=== PATIENT | male | born 1995 | race Hispanic/Latino ===

== ENCOUNTER 2019-12-24 16:14 | Emergency (ER) | payer OTHER, SELFPAY ==
[2019-12-24 16:24] VITALS: BP 150/87; PULSE 106; RESP 18; TEMP 37; O2SAT 98
--- NOTE | 2019-12-24 16:58 | ED.SKABFB ---
HPI - Skin/Abscess/Foreign Bdy General Chief complaint: Skin/Abscess/Foreign Body Stated complaint: Waistband pain Time Seen by Provider: 12/24/19 16:41 Source: patient and RN notes reviewed Mode of arrival: ambulatory Limitations: no limitations History of Present Illness HPI narrative: Patient presents today complaining of an abscess to his right lower abdomen x2 weeks that has been worsening over the last several days. Denies drainage. Reports it started out as a very small bump. Denies any shaving to this area. Denies any history of abscesses, staph infections, boils, MRSA. Currently rates his pain 2/10, which increases with touching or movement. He has tried Tylenol without relief. MD complaint: abscess/boil Related Data Allergies Allergy/AdvReac Type Severity Reaction Status Date / Time No Known Allergies Allergy Unknown Unverified 12/17/18 04:42 Review of Systems Review of Systems: Narrative: CONSTITUTIONAL: Denies body aches, fever, chills, or sweats. EYES: Denies visual changes, redness, or discharge. ENT: Denies rhinorrhea, congestion, sore throat, or otalgia. CARDIOVASCULAR: Denies chest pain, palpitations, or edema. RESPIRATORY: Denies cough or dyspnea. GASTROINTESTINAL: Denies abdominal pain, nausea, vomiting, or diarrhea. GENITOURINARY: Denies dysuria or hematuria. SKIN: Denies rash, itching, or wounds.+ Abscess to right lower abdomen MUSCULOSKELETAL: Denies back pain, joint pain, or myalgia. NEUROLOGIC: Denies headache, numbness, tingling, or weakness. PSYCH: Denies depression or anxiety. PMFSH Social History Social History Gender identity (if verbalized by the patient): Male Comments At time of signature, I have reviewed and agree with nursing past medical, surgical, social and family history unless otherwise noted. Please see nursing chart for further information. There is no relevant family history pertinent to the presenting complaint Exam Narrative: Exam Narrative: GENERAL: Well-appearing, well-nourished, and in no acute distress. HEAD: Normocephalic, atraumatic. EYES: EOMI. No redness or drainage. Conjunctivae normal. ENT: Mucous membranes pink and moist. NECK: Normal AROM. CHEST: No respiratory distress. EXTREMITIES: Normal range of motion. No edema. SKIN: Warm, dry, no rash. Capillary refill normal. Normal skin turgor. + 5 x 2 cm area of fluctuance to the right lower abdomen/abdominal fold. Tender to palpation. Very slight surrounding area of induration. NEURO: No focal deficits. Alert and oriented x3. Gait steady. PSYCH: Normal affect. No signs of depression or anxiety. Course Vital Signs Vital signs: Vital Signs Temperature 98.6 F 12/24/19 16:24 Pulse Rate 106 H 12/24/19 16:24 Respiratory Rate 18 12/24/19 16:24 Blood Pressure 150/87 H 12/24/19 16:24 Pulse Oximetry 98 12/24/19 16:24 Temperature 98.6 F 12/24/19 16:24 Pulse Rate 106 H 12/24/19 16:24 Respiratory Rate 18 12/24/19 16:24 Blood Pressure 150/87 H 12/24/19 16:24 Pulse Oximetry 98 12/24/19 16:24 Reviewed. Pt has been instructed to follow up with his PCP regarding his elevated blood pressure today. Procedures Abscess I/D abdomen: Date of Incision: 12/24/19 Time of Incision: 16:59 Side (if applicable): right Sedation/analgesia: none Local Anesthetic: lidocaine 1% Amount of anesthesia used (mL): 3 Technique: incised with #11 blade Irrigation: No Packing used?: iodoform I&D Results: Pus and Blood Abcess I&D Additional Comments: Dressed with large bandaid. Culture obtained. MDM - Skin/Abscess/Foreign Bdy Differential Diagnosis Differential diagnosis: Likely abscess of skin or subcutaneous tissue, cellulitis and impetigo Critical Care Time Critical Care Time Critical Care Time: No Discharge Plan Discharge Clinical Impression: Abscess, Cellulitis of right abdominal wall Patient Disposition: Home, T[place]
== END 2019-12-24 17:05 | disposition home or self-care (01) ==
PROVIDERS: Emergency Provider Nurse Practitioner
DX: L02.211 Cutaneous abscess of abdominal wall (principal); L03.311 Cellulitis of abdominal wall
CPT/HCPCS: 10061; 87070; 87077; 87186; 87205; 99213; G0463

== ENCOUNTER 2020-05-17 12:41 | Emergency (ER) | payer SELFPAY ==
--- NOTE | 2020-05-17 12:44 | ED.GENADULT ---
HPI - General Adult General Chief complaint: Skin/Abscess/Foreign Body Stated complaint: Abscess on back Time Seen by Provider: 05/17/20 12:44 Source: patient Mode of arrival: ambulatory Limitations: no limitations History of Present Illness HPI narrative: 24-year-old male patient presents to the [facility] with complaints of a wound to the buttocks for the past 2 weeks. Patient states is gotten increasingly worse the past couple of days and states it is painful to sit. Denies any fevers, body aches or chills. Patient states he has had an abscess to this area before and has not had it drained. Related Data Allergies Allergy/AdvReac Type Severity Reaction Status Date / Time No Known Allergies Allergy Unknown Unverified 12/17/18 04:42 Review of Systems Review of Systems: Narrative: CONSTITUTIONAL: Denies fever, chills, or sweats. EYES: Denies visual changes, redness, or discharge. ENT: Denies rhinorrhea, congestion, sore throat, or otalgia. CARDIOVASCULAR: Denies chest pain, palpitations, or edema. RESPIRATORY: Denies cough or dyspnea. GASTROINTESTINAL: Denies abdominal pain, nausea, vomiting, or diarrhea. GENITOURINARY: Denies dysuria or hematuria. SKIN: Denies rash or itching. Positive abscess to buttocks x2 weeks MUSCULOSKELETAL: Denies back pain, joint pain, or myalgia. NEUROLOGIC: Denies headache, numbness, or weakness. PSYCHIATRIC: Denies anxiety or depression. [facility] Past Medical History Medical History (Updated 05/17/20 @ 13:40 by MADISON Lugo) Fracture Compression fracture to spine Surgical History Surgical History (Updated 05/17/20 @ 12:46 by MADISON Lugo) History of appendectomy Social History Social History Gender identity (if verbalized by the patient): Male Comments At the time of my signature I agree with nursing past medical history, surgical, social, and family history. There is no relevant family history pertinent to the presenting complaint. Exam Narrative: Exam Narrative: GENERAL: Well-appearing, well-nourished, and in no acute distress. HEAD: Normocephalic, atraumatic. EYES: PERRLA and EOMI. ENT: Nares clear, no rhinorrhea or epistaxis. Mucous membranes moist. NECK: Supple. No lymphadenopathy CHEST: Clear to auscultation. No respiratory distress. HEART: Regular rate and rhythm. No murmur heard. Normal peripheral pulses. ABDOMEN: Soft, nontender, nondistended, normal active bowel sounds. EXTREMITIES: Normal range of motion. No edema. SKIN: Warm, dry, no rash. Patient has approximately 4.5 x 2 cm abscess noted to the left coccyx. There is no open wounds or drainage at this time. It is very firm to the touch but no warmth present. NEURO: No focal deficits. Alert and oriented x3. Course Vital Signs Vital signs: Vital Signs Temperature 37.1 C 05/17/20 12:58 Pulse Rate 108 H 05/17/20 12:58 Respiratory Rate 18 05/17/20 12:58 Blood Pressure 153/97 H 05/17/20 12:58 Pulse Oximetry 100 05/17/20 12:58 Temperature 37.1 C 05/17/20 12:58 Pulse Rate 108 H 05/17/20 12:58 Respiratory Rate 18 05/17/20 12:58 Blood Pressure 153/97 H 05/17/20 12:58 Pulse Oximetry 100 05/17/20 12:58 Vital signs reviewed The patient has been informed that they may have pre-hypertension or Hypertension based on a BP reading in the department. I recommend that the patient call the primary care provider listed on their discharge instructions or a physician of their choice this week to arrange follow up for further evaluation of possible pre-hypertension or Hypertension Procedures Abscess I/D florencio-rectal: Date of Incision: 05/17/20 Time of Incision: 13:35 Side (if applicable): left Sedation/analgesia: none Local Anesthetic: lidocaine 1% Amount of anesthesia used (mL): 4 Technique: incised with #11 blade Irrigation: Yes Packing used?: none I&D Results: B
[2020-05-17 12:58] VITALS: BP 153/97; PULSE 108; RESP 18; TEMP 37.1; O2SAT 100
--- NOTE | 2020-05-17 13:24 | PC.NURSE ---
1320, executive vp at bedside to exam.
--- NOTE | 2020-05-17 13:53 | PC.NURSE ---
abscess was to right upper inner buttock area.
== END 2020-05-17 14:02 | disposition home or self-care (01) ==
PROVIDERS: Emergency Provider Nurse Practitioner Family
DX: L02.31 Cutaneous abscess of buttock (principal)
CPT/HCPCS: 10060; 99213; G0463

== ENCOUNTER 2022-05-09 16:19 | Emergency (ER) | payer OTHER, SELFPAY ==
[2022-05-09 16:28] VITALS: BP 144/89; PULSE 104; RESP 16; TEMP 37.4; O2SAT 98
--- NOTE | 2022-05-09 16:31 | ED.URI ---
HPI - URI/Sore Throat General Chief Complaint: Upper Respiratory Infection Stated Complaint: uri Source: patient and RN notes reviewed Mode of arrival: ambulatory Limitations: no limitations History of Present Illness HPI Narrative: 26 y/o male presented for c/o nasal drainage and sinus pressure, sore throat, fatigue, and ear pressure for about 2 days. Endorses bilateral ear ringing and the left ear feels clogged with sharp shooting pains today. Took Nyquil for symptoms. Denies sob, wheezing, n/v/d/f/c. Reports sick contacts at work MD elicited complaint: cough Related Data Home Medications Medication Instructions Recorded Confirmed alcohol swabs (BD Alcohol Swabs) 1 pad topical DIRECTED 05/09/22 05/09/22 atorvastatin 20 mg tablet 20 mg PO DAILY 05/09/22 05/09/22 ergocalciferol (vitamin D2) 1,250 1,250 mcg PO DIRECTED 05/09/22 05/09/22 mcg (50,000 unit) capsule insulin glargine 100 unit/mL (3 1 unit subcut DIRECTED 05/09/22 05/09/22 mL) subcutaneous pen (Lantus Solostar U-100 Insulin) levothyroxine 50 mcg tablet 50 mcg PO DAILY 05/09/22 05/09/22 metformin 500 mg tablet,extended 500 mg PO DIRECTED 05/09/22 05/09/22 release 24 hr pen needle, diabetic 32 gauge x 05/09/22 05/09/22 5/32 (BD Yue 2nd Gen Pen Needle) semaglutide 0.25 mg or 0.5 mg (2 0.25 mg subcut DIRECTED 05/09/22 05/09/22 mg/1.5 mL) subcutaneous pen injector (Ozempic) Allergies Allergy/AdvReac Type Severity Reaction Status Date / Time No Known Allergies Allergy Unknown Unverified 12/17/18 04:42 Review of Systems Review of Systems: CONSTITUTIONAL: Denies malaise, chills, sweats, fever EYES: Denies visual changes, redness, or discharge ENT: Reports rhinorrhea, congestion, sinus pain, otalgia, sore throat CARDIOVASCULAR: Denies chest pain, palpitations, edema RESPIRATORY: Reports cough, post nasal drainage. Denies dyspnea GASTROINTESTINAL: Denies abdominal pain, nausea, vomiting, diarrhea SKIN: Denies rash or itching MUSCULOSKELETAL: Denies myalgia [facility] Past Medical History Medical History (Updated 05/09/22 @ 16:46 by Laquita Giraldo APRN) Diabetes Fracture Compression fracture to spine Surgical History Surgical History History of appendectomy Social History Social History Gender identity (if verbalized by the patient): Male Exam Narrative: GENERAL: mildly Ill-appearing, nontoxic EYES: PERRLA, conjunctivae clear ENT: Mucous membranes moist. Right TM pearly avila with dull light reflex; Left TM erythematous and bulging; no tragal tenderness. Oropharynx erythematous without lesions or exudate NECK: Supple. No lymphadenopathy CHEST: Clear to auscultation, breath sounds equal. No wheezing, rhonchi, rales, or stridor. HEART: Regular rate and rhythm. No murmur heard. SKIN: Warm, dry, no rash. NEURO: Alert and oriented x3. PSYCH: Normal mood and affect Course Course Emergency Course: Patient is aware of diagnosis, understands and agrees to treatment plan. Anticipatory guidance given. Patient agrees to follow-up as directed and is aware of reasons to seek care at the emergency department. Portions of this record may have been created with voice recognition software Level of Care: Express Care Visit Vital Signs Vital signs: Vital Signs Temperature 99.4 F 05/09/22 16:28 Pulse Rate 104 H 05/09/22 16:28 Respiratory Rate 16 05/09/22 16:28 Blood Pressure 144/89 H 05/09/22 16:28 Pulse Oximetry 98 05/09/22 16:28 Oxygen Delivery Room Air 05/09/22 16:28 Temperature 99.4 F 05/09/22 16:28 Pulse Rate 104 H 05/09/22 16:28 Respiratory Rate 16 05/09/22 16:28 Blood Pressure 144/89 H 05/09/22 16:28 Pulse Oximetry 98 05/09/22 16:28 Oxygen Delivery Room Air 05/09/22 16:28 reviewed MDM - URI/Sore Throat MDM Narrative Medical decision making narrati
== END 2022-05-09 16:53 | disposition home or self-care (01) ==
PROVIDERS: Emergency Provider Nurse Practitioner Family; PCP Family Medicine
DX: H66.90 Otitis media, unspecified, unspecified ear (principal); E11.9 Type 2 diabetes mellitus without complications; Z79.4 Long term (current) use of insulin
CPT/HCPCS: 87081; 87880; 99213; G0463

== ENCOUNTER 2023-08-15 02:18 | Emergency (ER) | payer OTHER, SELFPAY ==
[2023-08-15 02:23] VITALS: BP 166/92; PULSE 120; RESP 16; TEMP 37.1; O2SAT 100
--- NOTE | 2023-08-15 02:55 | ED.GENADULT ---
HPI - General Adult General Chief complaint: Wound/Laceration Stated complaint: right thigh painful wound Time Seen by Provider: 08/15/23 02:29 History of Present Illness HPI narrative: Patient is a 27-year-old male who presents to the emergency department this evening complaining of right thigh abscess. Patient states that he noticed the bump approximately 1 week ago and felt as though it is an ingrown hair follicle which he usually gets frequently. Patient states that throughout the week it has grown in size and become more more tender and red. Patient states that he tried to drain it himself with no success. His cry denies any additional symptoms including any fevers or chills. Related Data Home Medications Medication Instructions Recorded Confirmed alcohol swabs (BD Alcohol Swabs) 1 pad topical DIRECTED 05/09/22 05/09/22 atorvastatin 20 mg tablet 20 mg PO DAILY 05/09/22 05/09/22 ergocalciferol (vitamin D2) 1,250 1,250 mcg PO DIRECTED 05/09/22 05/09/22 mcg (50,000 unit) capsule insulin glargine 100 unit/mL (3 1 unit subcut DIRECTED 05/09/22 05/09/22 mL) subcutaneous pen (Lantus Solostar U-100 Insulin) levothyroxine 50 mcg tablet 50 mcg PO DAILY 05/09/22 05/09/22 metformin 500 mg tablet,extended 500 mg PO DIRECTED 05/09/22 05/09/22 release 24 hr pen needle, diabetic 32 gauge x 05/09/22 05/09/22 5/32 (BD Yue 2nd Gen Pen Needle) semaglutide 0.25 mg or 0.5 mg (2 0.25 mg subcut DIRECTED 05/09/22 05/09/22 mg/1.5 mL) subcutaneous pen injector (Ozempic) Allergies Allergy/AdvReac Type Severity Reaction Status Date / Time No Known Allergies Allergy Unknown Unverified 08/15/23 02:19 Review of Systems Review of Systems: All systems are reviewed and are negative unless stated otherwise in the HPI. [facility] Past Medical History Medical History Diabetes Fracture Compression fracture to spine Surgical History Surgical History History of appendectomy Social History Social History Gender identity (if verbalized by the patient): Male Exam Narrative: General: Alert, awake, afebrile, in no acute distress. HEENT: PERRL, no rhinorrhea, no post nasal drip, oropharynx clear. Cardiovascular: Regular rate and rhythm, no murmurs, rubs or gallops, no peripheral edema. Respiratory: Clear to auscultation bilaterally, no tachypnea, no wheezing, no rhonchi, no rubs, no respiratory distress. Abdomen: Soft, nontender, nondistended, no rebound, no guarding, no peritoneal signs. Musculoskeletal: No joint swelling or deformity, normal muscle tone. Skin: Abscess overlying the right upper lateral thigh measuring approximately 6 x 6 cm with surrounding erythema and induration. Neurological: Alert and oriented to person, place, and time. Follows all commands. No focal deficits, speech is clear and fluent. Course Vital Signs Vital signs: Vital Signs Temperature 98.7 F 08/15/23 02:23 Pulse Rate 120 H 08/15/23 02:23 Respiratory Rate 16 08/15/23 02:23 Blood Pressure 166/92 H 08/15/23 02:23 Pulse Oximetry 100 08/15/23 02:23 Oxygen Delivery Room Air 08/15/23 02:23 Temperature 98.7 F 08/15/23 02:23 Pulse Rate 120 H 08/15/23 02:23 Respiratory Rate 16 08/15/23 02:23 Blood Pressure 166/92 H 08/15/23 02:23 Pulse Oximetry 100 08/15/23 02:23 Oxygen Delivery Room Air 08/15/23 02:23 Procedures Abscess I/D lower extremity: Date of Incision: 08/15/23 Time of Incision: 03:15 Side (if applicable): right Sedation/analgesia: other Local Anesthetic: lidocaine 1% Amount of anesthesia used (mL): 3 Technique: incised with #11 blade Amount of fluid expressed (mL): 20 Irrigation: No Packing used?: none I&D Results: Pus and Blood Med
== END 2023-08-15 03:20 | disposition home or self-care (01) ==
PROVIDERS: Emergency Provider Emergency Medicine; PCP Family Medicine
DX: L02.415 Cutaneous abscess of right lower limb (principal); E11.9 Type 2 diabetes mellitus without complications; Z79.4 Long term (current) use of insulin
CPT/HCPCS: 10060; 99283

== ENCOUNTER 2024-03-31 16:07 | Outpatient (CLI) | payer OTHER, SELFPAY ==
--- OUTSIDE RECORDS SUMMARY | 2024-03-31 16:14 | XMS_ITS | Referral Summary ---
Author Organization [facility] Address [address] [place] [address] Care Team Providers Care Medical Tech Name Role Phone Vee Lund Primary Care Provider + Source Comments [facility],non-owned Affiliates and Associated Physician Practices is amultiple site organization consisting of ambulatory clinics and hospital sitesin [place], [place], [place] and [place]. This disclosure is being madepursuant to the Care Everywhere program and may not contain all information available regarding this patient. Last updated 17.[facility] Social History Tobacco Use Types Packs/Day Years Used Date Smoking Tobacco: Never Assessed Sex and Gender Information Value Date Recorded Sex Assigned at Not on file Gender Identity Not on file Sexual Orientation Not on file Plan of Treatment Not on file Care Teams Medical Tech Relationship Specialty Start Date End Date Vee Lund APRN-CNP [address] [place] [address] [place] [phone] PCP - General 04/25/09
--- OUTSIDE RECORDS SUMMARY | 2024-03-31 16:15 | XMS_ITS | Clinical Summary ---
Author Organization [facility] Address [address] [place] [phone] Phone Care Team Providers Care Customs Compliance Director Name Role Phone Unavailable Primary Care Provider Unavailabl e Social History Tobacco Use Types Packs/Day Years Used Date Smoking Tobacco: Never Assessed Sex and Gender Information Value Date Recorded Sex Assigned at Not on file Legal Sex Male 1:18 PM CDT Gender Identity Not on file Sexual Orientation Not on file Plan of Treatment Health Maintenance Due Date Last Done Comments DTAP/TDAP/TD VACCINES (1 - Tdap) 2012 HEPATITIS B VACCINES (1 of 3 - 19+ 3-dose series) 2012 INFLUENZA VACCINE (#1) 2023 HPV VACCINES Aged Out No longer eligi ble based on patient's age to complete this topic PNEUMOCOCCAL VACCINE 0-64 YEARS Aged Out No longer eligible based on patient's age to complete this topic
--- OUTSIDE RECORDS SUMMARY | 2024-03-31 16:15 | XMS_ITS | Clinical Summary ---
Author Organization [facility] Address [address] [place] [address] Care Team Providers Care Chief Crew Scheduler Name Role Phone Vee Lund Primary Care Provider + Source Comments [facility],non-owned Affiliates and Associated Physician Practices is amultiple site organization consisting of ambulatory clinics and hospital sitesin [place], [place]. This disclosure is being madepursuant to the Care Everywhere program and may not contain all information available regarding this patient. Last updated 17.[facility] Social History Tobacco Use Types Packs/Day Years Used Date Smoking Tobacco: Never Assessed Sex and Gender Information Value Date Recorded Sex Assigned at Not on file Gender Identity Not on file Sexual Orientation Not on file Plan of Treatment Health Maintenance Due Date Last Done Comments HIV SCREENING 2008 HEPATITIS C SCREENING 11/26/2011 DTAP/TDAP/TD VACCINES (1 - Tdap) 2012 HEPATITIS B VACCINE (1 of 3 - 19+ 3-dose series) 2012 COVID-19 VACCINE ( - 2023-2 5 season) 2023 INFLUENZA VACCINE (#1) 2023 DEPRESSION SCREENING 03/04/2024 ZOSTER VACCINE (1 of 2) 12/01/2043 HIB VACCINE Aged Out No longer eligi ble based on patient's age to complete this topic HPV VACCINE Aged Out No longer eligi ble based on patient's age to complete this topic MENINGOCOCCAL (Group B) VACCINE Aged Out No longer eligible based on patient's age to complete this topic MENINGOCOCCAL VACCINE Aged Out No darleen heather eligible based on patient's age to complete this topic PNEUMOCOCCAL VACCINE Aged Out No long er eligible based on patient's age to complete this topic Care Teams Chief Crew Scheduler Relationship Specialty Start Date End Date Vee Lund APRN-ELEONORA [address] [place] [phone] PCP - General 04/25/09
--- OUTSIDE RECORDS SUMMARY | 2024-03-31 16:15 | XMS_ITS | Patient Health Summary ---
Author Organization [facility] Address [address] [place] [address] Care Team Providers Care Ice Seller Name Role Phone Vee Lund Primary Care Provider + Note from [facility],non-owned Affiliates and Associated Physician Practices is amultiple site organization consisting of ambulatory clinics and hospital sitesin [place], [place], [place] and [place]. This disclosure is being madepursuant to the Care Everywhere program and may not contain all information available regarding this patient. Last updated 17.[facility] Social History Tobacco Use Types Packs/Day Years Used Date Smoking Tobacco: Never Assessed Sex and Gender Information Value Date Recorded Sex Assigned at Not on file Gender Identity Not on file Sexual Orientation Not on file Procedures * CBC W AUTO DIFFERENTIAL(Performed 04/26/2009) * GROSS + MICRO EXAM(Performed 04/25/2009) Results * (ABNORMAL) CBC W AUTO DIFFERENTIAL (04/26/2009 7:30 AM LINE PATROLMAN) WBC 6.56 4.5 - 14.5 K/cumm [facility] RBC 5.20 4.50 - 5.30 mill/cumm [facility] Hemoglobin 13.8 13.0 - 16.0 gm/dl [facility] Hematocrit 39.8 37.0 - 49.0 % [facility] MCV 76.5(L) 78.0 - 98.0 cu microns [facility] MCH 26.5 25.0 - 35.0 uug [facility] MCHC 34.7 31.0 - 37.0 % [facility] RDW 14.3 % [facility] MPV 9.5 fl [facility] Platelet Count 222 100 - 400 K/cumm [facility] Comment Manual Diff Done [facility] Band % Manual 2 % [facility] Neutrophils % Manual 51 24 - 66 % [facility] Lymphocytes % Manual 26 22 - 61 % [facility] Monocytes % Manual 8 3 - 15 % [facility] Eosinophils % Manual 2 0 - 10 % [facility] Atypical Lymphocyte % Manual 10 % [facility] Temple Manual 1 % [facility] RBC Morphology Slight Anisocytosis, Poikylocytosis [facility] BLOOD SPECIMEN / Unknown 04/26/2009 7:30 AM LINE PATROLMAN Yaron Galarza MD LAB - HEMATOLOGY ORD ERABLES [facility] * GROSS + MICRO EXAM (04/25/2009 10:34 AM LINE PATROLMAN) [facility] Clinical History [facility] Comment: The patient is a 13-year-old boy with acute appendicitis who underwent laparoscopic appendectomy. Gross Description [facility] Comment: Submitted fresh in one container for gross and microscopic examination labeled with the patient's name, Kulwinder Emery, and appendix is a 10.0 x 3.5 x 1.4 cm in greatest dimension vermiform appendix with attached mesoappendix. ??The external surface is red-asencio, congested, and partially covered by a avila-white, fibrinous exudate. ??The proximal appendix and mesentery are stapled. ??A 1.5 cm lymph node is identified within the mesenteric aspect of the specimen. ??The appendiceal lumen is patent and contains dark red mucoid material. ??The appendiceal wall varies from 2.0 mm to 4.0 mm in thickness. ??The appendiceal lumen varies from 3.0 mm to 5.0 mm in diameter. ??The specimen is serially sectioned, and product sales representative sections are submitted in cassette A1. ??(CT/lw) Microscopic Examination [facility] Comment: 1 HTE (CSA/SS/lw) Diagnosis [facility] Comment: DIAGNOSISF ??VERMIFORM APPENDIX, LAPAROSCOPIC APPENDECTOMYF ?-ACUTE TRANSMURAL APPENDICITIS. This case has been personally reviewed and interpreted by the attending (teaching) pathologist. Strip Presser Inés Chery [facility] Resident in Pathology Nick Cruz D.O. [facility] Pathologist Vicente Farnsworth M.D. [facility] Electronically Signed By Vicente Farnsworth M.D. [facility] ENTIRE APPENDIX / Unknown 04/25/2009 10:34 AM LINE PATROLMAN Yaron Galarza MD LAB - PATHOLOGY/CYTO LOGY ORDERABLES Performing Organization Address City/State/[facility] Co de Phone Number [facility] Care Teams Ice Seller Relationship Specialty Start Date End Date Vee Lund APRN-ELEONORA [address] [place] [phone] PCP - General 04/25/09
[2024-03-31 16:56] LABS: Alanine Aminotransferase 62 U/L (6-50); Albumin Level 4.4 g/dL (3.5-5.1); Alkaline Phosphatase 130 U/L (38-126); Anion Gap 10 mmol/L (4-12); Aspartate Amino Transferase 48 U/L (17-59); Bilirubin,Total 0.9 mg/dL (0.2-1.3); Blood Urea Nitrogen 12 mg/dL (9-20); Calcium 9.3 mg/dL (8.4-10.2); Carbon Dioxide 25 mmol/L (22-30); Chloride 100 mmol/L (98-107); Cholesterol 141 mg/dL (0-200); Estimated Glomerular Filt Rate > 60; Glucose 122 mg/dL (65-110); HDL Direct 33 mg/dL; Potassium 3.6 mmol/L (3.4-5.0); Sodium 135 mmol/L (137-145); Triglycerides 127 mg/dL (<150)
[2024-03-31 17:07] LABS: LDL Cholesterol Direct 88 mg/dL
[2024-03-31 19:28] LABS: Hemoglobin A1C 10.6 % (<5.7)
== END 2024-03-31 16:08 | disposition home or self-care (01) ==
LOC: ANHLAB 16:12
PROVIDERS: PCP Nurse Practitioner Family; Visit Provider Nurse Practitioner Family
DX: E03.9 Hypothyroidism, unspecified (principal); E78.5 Hyperlipidemia, unspecified; E11.9 Type 2 diabetes mellitus without complications
CPT/HCPCS: 36415; 80053; 80061; 83036; 84439; 84443

== ENCOUNTER 2024-05-20 17:35 | Emergency (ER) | payer OTHER, SELFPAY ==
[2024-05-20 17:46] VITALS: BP 154/88; PULSE 110; RESP 20; TEMP 36.6; O2SAT 99
--- NOTE | 2024-05-20 17:58 | ED.SKABFB ---
HPI - Skin/Abscess/Foreign Bdy General Chief complaint: Skin/Abscess/Foreign Body Stated complaint: Bump On Right Hip Time Seen by Provider: 05/20/24 17:53 Source: patient and RN notes reviewed Mode of arrival: ambulatory Limitations: no limitations History of Present Illness HPI narrative: Patient presents today with an abscess to the right lateral hip. Initially the area started hit the beginning of April and has progressively gotten worse. He has had 3 abscesses in the past with no history of MRSA. He has tried some mupirocin without relief. No history of fever or drainage. He does have history of diabetes and states his sugars are under control. Related Data Home Medications ?Medication ?Instructions ?Recorded ?Confirmed ?Last Taken ?Type atorvastatin 20 mg tablet 20 mg PO DAILY 05/09/22 04/08/24 Unknown History ergocalciferol (vitamin D2) 1,250 1,250 mcg PO DIRECTED 05/09/22 04/08/24 Unknown History mcg (50,000 unit) capsule pen needle, diabetic 32 gauge x 05/09/22 04/08/24 Unknown History (BD Yue 2nd Gen Pen Needle) alcohol swabs pad topical 05/20/24 Unknown History levothyroxine 75 mcg tablet mcg 05/20/24 Unknown History Allergies Allergy/AdvReac Type Severity Reaction Status Date / Time No Known Allergies Allergy Unknown Verified 05/20/24 17:55 Review of Systems Review of Systems: CONSTITUTIONAL: Denies body aches, fever, chills, or sweats. EYES: Denies visual changes, redness, or discharge. ENT: Denies rhinorrhea, congestion, sore throat, or otalgia. CARDIOVASCULAR: Denies chest pain, palpitations, or edema. RESPIRATORY: Denies cough or dyspnea. GASTROINTESTINAL: Denies abdominal pain, nausea, vomiting, or diarrhea. GENITOURINARY: Denies dysuria or hematuria. SKIN: + right hip abscess. MUSCULOSKELETAL: Denies back pain, joint pain, or myalgia. NEUROLOGIC: Denies headache, numbness, tingling, or weakness. PSYCH: Denies depression or anxiety. [facility] Past Medical History Medical History Hypertension Anxiety Folliculitis Vitamin D deficiency Recurrent boils Elevated BP without diagnosis of hypertension Hypothyroid Hyperlipidemia Diabetes Fracture Compression fracture to spine Surgical History Surgical History (Reviewed 05/20/24 @ 18:00 by Shruthi Chakraborty, [facility], ) Hx of cataract surgery History of appendectomy Family History Family History (Reviewed 05/20/24 @ 18:00 by Shruthi Chakraborty, [facility], ) Grandparent Diabetes mellitus Social History Social History (Reviewed 05/20/24 @ 18:00 by Shruthi Chakraborty, [facility], ) Smoking status: Never smoker Alcohol intake: never Substance use: never Gender identity (if verbalized by the patient): Male Comments At time of signature, I have reviewed and agree with nursing past medical, surgical, social and family history unless otherwise noted. Please see nursing chart for further information. There is no relevant family history pertinent to the presenting complaint Exam Narrative: GENERAL: Well-appearing, well-nourished, and in no acute distress. HEAD: Normocephalic, atraumatic. EYES: EOMI. No redness or drainage. Conjunctivae normal. ENT: Mucous membranes pink and moist. NECK: Normal AROM. CHEST: No respiratory distress. EXTREMITIES: Normal range of motion. No edema. SKIN: Warm, dry, no rash. Capillary refill normal. Normal skin turgor. 4cm round fluctuant and hyperpigmented area to the right lateral hip. Tender to palpation. NEURO: No focal deficits. Alert and oriented x3. Gait steady. PSYCH: Normal affect. No signs of depression or anxiety. Course Course Level of Care: Express Care Visit Vital Signs Vital signs: Vital Signs Temperature 98 F 05/20/24 17:46 Pulse Rate 110 H 05/20/24 17:46 Respiratory Rate 20 05/20/24 17:46 Blood Pressure 154/88 H 05/20/24 17:46 Pulse Oximetry 99 05/20/24 17:46 Oxygen Delivery Room Air 05/20/24 17:46 Temperature 98 F 05/20/24 17:46 Pulse Rate 110 H 05/20/24 17:46 Respiratory Rate 20 05/20/24 17:46 Blood Pressure 154/88 H 05/20/24 17:46 Pulse Oximetry 99 05/20/24 17:46 Oxygen Delivery Room Air 05/20/24 17:46 Reviewed Procedures Abscess I/D other: Date of Incision: 03/19/25 Time of Incision: 18:15 Side (if applicable): right (lateral hip) Local Anesthetic: lidocaine 1% and with epi Amount of anesthesia used (mL): 4 Technique: incised with #11 blade Amount of fluid expressed (mL): 5 Irrigation: Yes Packing used?: iodoform I&D Results: Pus and Blood Abcess I&D Additional Comments: Dressed with large Band-Aid. MDM - Skin/Abscess/Foreign Bdy MDM Narrative Medical decision making narrative: Abscess has been lanced and drained and packed with iodoform gauze. Care instructions given. Prescription for Keflex sent to pharmacy. Considered Bactrim, but interacts with lisinopril. Patient denies any history of MRSA anticipatory guidance given. Differential Diagnosis Differential diagnosis: Likely abscess of skin or subcutaneous tissue and cellulitis Critical Care Time Critical Care Time Critical Care Time: No Discharge Plan Discharge Clinical Impression: Abscess of hip, right Patient Disposition: Home, Self-Care Condition: Stable Instructions: Antibiotic Form, Abscess Incision and Drainage (DC) Additional Instructions: Your abscess has been lanced and drained. There has also been some packing placed that can be removed in 48 hours. Please try to keep this area clean and dry until the packing has been removed. After the packing has been removed, wash the area daily with soap and water and keep covered until scabbed over. Do not apply any antibiotic ointment to the area. Take the antibiotics as prescribed until gone. Take Tylenol or ibuprofen for pain, if able. Follow-up with your PCP in 3-5 days to ensure that your healing. Go to the ER immediately with any worsening symptoms. Your blood pressure was elevated above 120/80 today at Urgent Care. This puts you above the threshold for follow up. Please schedule a followup visit with your personal physician as soon as possible, for further evaluation and treatment. Even blood pressure exceeding 120/80 may indicate pre-hypertension. Patient Language: Kyrgyz Prescriptions: New cephalexin 500 mg capsule 500 mg PO Q6H 7 Days Qty: 28 0RF No Action atorvastatin 20 mg tablet 20 mg PO DAILY ergocalciferol (vitamin D2) 1,250 mcg (50,000 unit) capsule 1,250 mcg PO DIRECTED (DME) pen needle, diabetic [BD Yue 2nd Gen Pen Needle] 32 gauge x 5/32 needle MISCELLANEOUS levothyroxine 75 mcg tablet alcohol swabs Pads, Medicated TOPICAL lisinopril 5 mg tablet 5 mg PO DAILY Qty: 90 3RF Ozempic 2 mg/dose (8 mg/3 mL) pen injector 2 mg subcut WEEKLY Qty: 9 3RF buspirone 5 mg tablet See Rx Instructions PO BID Qty: 100 0RF Rx Instructions: start 1 tab 2x/day and increase by 1 tab every 3 days to max dose 3 tabs 2x/day. call for refill insulin glargine [Basaglar KwikPen U-100 Insulin] 100 unit/mL (3 mL) insulin pen 24 unit subcut DAILY 90 Days Qty: 22 3RF Follow-up/Referrals: Lacy Olivares NP [Primary Care Provider] - Time of Disposition: 18:32
== END 2024-05-20 18:35 | disposition home or self-care (01) ==
PROVIDERS: Emergency Provider Nurse Practitioner; PCP Nurse Practitioner Family
DX: L02.415 Cutaneous abscess of right lower limb (principal); I10 Essential (primary) hypertension; E03.9 Hypothyroidism, unspecified; E78.5 Hyperlipidemia, unspecified; E11.9 Type 2 diabetes mellitus without complications; E55.9 Vitamin D deficiency, unspecified
CPT/HCPCS: 10061; 99213; G0463; J2004

== ENCOUNTER 2024-09-29 16:32 | Outpatient (CLI) | payer OTHER, SELFPAY ==
[2024-09-29 17:43] LABS: Alanine Aminotransferase 37 U/L (6-50); Albumin Level 4.5 g/dL (3.5-5.1); Alkaline Phosphatase 110 U/L (38-126); Anion Gap 8 mmol/L (4-12); Aspartate Amino Transferase 38 U/L (17-59); Bilirubin,Total 0.8 mg/dL (0.2-1.3); Blood Urea Nitrogen 13 mg/dL (9-20); Calcium 9.6 mg/dL (8.4-10.2); Carbon Dioxide 25 mmol/L (22-30); Chloride 98 mmol/L (98-107); Cholesterol 140 mg/dL (0-200); Estimated Glomerular Filt Rate > 60; Glucose 110 mg/dL (65-110); HDL Direct 30 mg/dL; Potassium 3.9 mmol/L (3.4-5.0); Sodium 131 mmol/L (137-145); Total Protein 8.6 g/dL (6.3-8.2); Triglycerides 106 mg/dL (<150)
[2024-09-29 18:06] LABS: Free T4 Free Thyroxine 1.00 ng/dL (0.78-2.19)
[2024-09-29 18:18] LABS: Thyroid Stimulating Hormone 6.030 uIU/mL (0.465-4.680)
[2024-09-29 20:59] LABS: Hemoglobin A1C 7.9 % (<5.7)
== END 2024-09-29 16:33 | disposition home or self-care (01) ==
LOC: ANHLAB 16:34
PROVIDERS: PCP Nurse Practitioner Family; Visit Provider Nurse Practitioner Family
DX: E78.5 Hyperlipidemia, unspecified (principal); E11.9 Type 2 diabetes mellitus without complications; E03.9 Hypothyroidism, unspecified; E55.9 Vitamin D deficiency, unspecified
CPT/HCPCS: 36415; 80053; 80061; 82306; 83036; 84439; 84443

== ENCOUNTER 2025-02-03 07:14 | Outpatient (CLI) | payer OTHER, SELFPAY ==
--- OUTSIDE RECORDS SUMMARY | 2025-02-03 07:18 | XMS_ITS | Clinical Summary ---
Author Organization [facility] Address [address] [place] [address] Care Team Providers Care Data Officer Name Role Phone Vee Lund Primary Care Provider + Source Comments [facility],non-owned Affiliates and Associated Physician Practices is amultiple site organization consisting of ambulatory clinics and hospital sitesin [place], [place], [place] and [place]. This disclosure is being madepursuant to the Care Everywhere program and may not contain all information available regarding this patient. Last updated 17.[facility] [employer] Social History Tobacco Use Types Packs/Day Years Used Date Smoking Tobacco: Never Assessed Sex and Gender Information Value Date Recorded Sex Assigned at Not on file Legal Sex Male 8:33 AM [employer] Gender Identity Not on file Sexual Orientation Not on file Plan of Treatment Health Maintenance Due Date Last Done Comments HIV SCREENING 2008 HEPATITIS C SCREENING 11/26/2011 DTAP/TDAP/TD VACCINES (1 - Tdap) 2012 HEPATITIS B VACCINE (1 of 3 - 19+ 3-dose series) 2012 HPV VACCINE (1 - 3-dose SCDM series) 2020 DEPRESSION SCREENING 03/04/2024 COVID-19 VACCINE (1 - 2024-2 6 season) 2024 INFLUENZA VACCINE (#1) 2024 ZOSTER VACCINE (1 of 2) 12/01/2043 HIB VACCINE Aged Out No longer eligi ble based on patient's age to complete this topic MENINGOCOCCAL (Group B) VACC INE SHARED DECISION-MAKING Aged Out No longer eligibl e based on patient's age to complete this topic MENINGOCOCCAL GROUPS A/C/Y/W VACCINE Aged Out No longer eligible b ased on patient's age to complete this topic PNEUMOCOCCAL VACCINE Aged Out No long er eligible based on patient's age to complete this topic Care Teams Data Officer Relationship Specialty Start Date End Date Vee Lund APRN-ELEONORA [address] [place] [id number] PCP - General 04/25/09
--- OUTSIDE RECORDS SUMMARY | 2025-02-03 07:18 | XMS_ITS | Clinical Summary ---
Author Organization [facility] Address [address] [place] [phone] Phone Care Team Providers Care Steel Chipper Name Role Phone Unavailable Primary Care Provider [...] (1 of 3 - 19+ 3-dose series) 11/03 HPV VACCINES (1 - 3-dose SCDM series) 2020 INFLUENZA VACCINE (#1) 2024
[2025-02-03 07:26] LABS: Hematocrit 47.3 % (42.0-52.0); Hemoglobin 15.2 g/dL (14.0-18.0); Immature Granulocyte Percent A 0.7 % (0-0.5); Lymphocytes Absolute Auto 3.21 K/mm3 (0.9-3.2); Mean Corpuscular HGB Conc 32.1 g/dl (32-36); Mean Corpuscular Hemoglobin 26.2 pg (26-34); Mean Corpuscular Volume 81.4 fl (80-100); Nucleated Red Blood Cells Absolute Auto 0.000 K/mm3 (0.0-0.012); Nucleated Red Blood Cells Perc 0.0 % (0.0-0.2); Platelet Count Result 285 k/mm3 (150-375); Red Blood Count 5.81 M/mm3 (4.6-6.20); White Blood Count 8.5 K/mm3 (4.5-10.0)
[2025-02-03 07:50] LABS: Alanine Aminotransferase 28 U/L (6-50); Albumin Level 4.6 g/dL (3.5-5.1); Alkaline Phosphatase 89 U/L (38-126); Anion Gap 5 mmol/L (4-12); Aspartate Amino Transferase 31 U/L (17-59); Bilirubin,Total 0.8 mg/dL (0.2-1.3); Blood Urea Nitrogen 16 mg/dL (9-20); Calcium 9.3 mg/dL (8.4-10.2); Carbon Dioxide 27 mmol/L (22-30); Chloride 106 mmol/L (98-107); Estimated Glomerular Filt Rate > 60; Glucose 103 mg/dL (65-110); Hemoglobin A1C 6.5 % (<5.7); Potassium 4.2 mmol/L (3.4-5.0); Sodium 138 mmol/L (137-145); Total Protein 8.4 g/dL (6.3-8.2)
[2025-02-03 08:03] LABS: Free T4 Free Thyroxine 0.92 ng/dL (0.78-2.19)
== END 2025-02-03 07:15 | disposition home or self-care (01) ==
LOC: ANHLAB 07:15
PROVIDERS: PCP Nurse Practitioner Family; Visit Provider Nurse Practitioner Family
DX: E03.9 Hypothyroidism, unspecified (principal); E78.5 Hyperlipidemia, unspecified; E11.9 Type 2 diabetes mellitus without complications; I10 Essential (primary) hypertension
CPT/HCPCS: 36415; 80053; 83036; 84439; 84443; 85025